=== PATIENT | female | born 1935 | race Two or more races ===

== ENCOUNTER 2021-01-16 11:05 | Outpatient (CLI) | payer OTHER | END 2021-01-16 15:37 | disposition home or self-care (01) | LOC: LAB 11:05 | PROVIDERS: ATTEND Student in an Organized Health Care Education/Training Program | DX: Z20.828 Contact with and (suspected) exposure to other viral communicable diseases (principal) ==

== ENCOUNTER → 2021-01-16 | Day surgery (SDC) | payer OTHER ==
[~2021-01-16] MED LIST: GRALISE600 MG PO; PEPCID PO; PLAVIX75 MG PO; SYNTHROID50 MCG PO; TOPROL XL100 M1 PO; VALSART PO; [UNRECOGNIZED DRUG - OTHER] PO
== END | disposition home or self-care (01) ==
LOC: ADM 12-30 07:15 → CIR.AMB 12-31 07:15
PROVIDERS: ATTEND Student in an Organized Health Care Education/Training Program
DX: R33.8 Other retention of urine (principal); Z53.29 Procedure and treatment not carried out because of patient's decision for other reasons; R19.7 Diarrhea, unspecified
CPT/HCPCS: 64581; C1778